=== PATIENT | female | born 1960 | race Caucasian/White ===

== ENCOUNTER 2020-05-29 10:56 | Emergency (ER) | payer BC ==
[2020-05-29 11:28] VITALS: BP 116/77
--- NOTE | 2020-05-29 11:40 | ER Document Report ---
HPI - HPI Patient complains to provider of: Bug bite Time Seen by Provider: 05/29/20 11:31 Onset: Other - This is a 60-year-old female who was bitten by an insect about 5 days ago she had been on 2 different antibiotics however is developing allergies to the antibiotics. Quality of pain: Achy Associated Symptoms: Nonproductive cough Exacerbated by: Denies Relieved by: Denies Past Medical History - General Information source: Patient Cannot obtain history due to: Dementia - Social History Smoking Status: Never Smoker Cigarette use (# per day): No Chew tobacco use (# tins/day): No Smoking Education Provided: No Frequency of alcohol use: None Drug Abuse: None Lives with: Alone Family History: None Vertical Provider Document - CONSTITUTIONAL Agree With Documented VS: Yes - INFECTION CONTROL TRAVEL OUTSIDE OF THE [place] IN LAST 30 DAYS: No - HEENT HEENT: Atraumatic, Conjuctival Injection, Normocephalic, PERRLA - NECK Neck: Normal Inspection - RESPIRATORY Respiratory: Breath Sounds Normal - GI/ABDOMEN Gastrointestinal: Abdomen Soft, Abdomen Non-Tender - BACK Back: Normal Inspection - MUSCULOSKELETAL/EXTREMETIES Musculoskeletal/Extremeties: MAEW - NEURO Level of Consciousness: Awake, Alert Motor/Sensory: No Motor Deficit - DERM Integumentary: Warm Course - Re-evaluation Re-evalutation: 05/29/20 11:39 Resolving cellulitis from bug bite approximately 1 week ago. - Vital Signs Vital signs: Temp Pulse Resp BP Pulse Ox 99.4 F 98 18 116/77 98 05/29/20 11:26 05/29/20 11:26 05/29/20 11:26 05/29/20 11:26 05/29/20 11:26 Discharge - Discharge Clinical Impression: Insect bite Qualifiers: Encounter type: sequela Site of insect bite: unspecified site Qualified Code(s): W57.XXXS - Bitten or stung by nonvenomous insect and other nonvenomous arthropods, sequela Disposition: HOME, SELF-CARE Instructions: Insect Bites ([facility]) Prescriptions: Diphenhydramine HCl [Benadryl 25 mg Capsule] 25 mg PO Q6 PRN #25 capsule PRN Reason: Cephalexin Monohydrate [Keflex 500 mg Capsule] 500 mg PO Q6H 5 Days capsule
== END 2020-05-29 11:55 | disposition home or self-care (01) ==
LOC: ER 10:56
DX: T36.95XA Adverse effect of unspecified systemic antibiotic, initial encounter (principal); W57.XXXS Bitten or stung by nonvenomous insect and other nonvenomous arthropods, sequela; F03.90 Unspecified dementia, unspecified severity, without behavioral disturbance, psychotic disturbance, mood disturbance, and anxiety
CPT/HCPCS: 99283